=== PATIENT | female | born 1950 | race Caucasian/White ===

== ENCOUNTER → 2016-11-19 | Outpatient (CLI) | payer MEDICARE ==
--- NOTE | 2016-11-19 14:20 | MM ---
Reason for exam: history of breast cancer, conservation therapy. Last mammogram was performed 1 year ago. History: Patient is postmenopausal and has history of breast cancer at age 52. Benign cyst aspiration of the left breast, June 02, 2004. Excisional biopsy of the left breast, June 2004. Radiation therapy of the left breast, 2002. Lumpectomy of the left breast, September 01, 2002. Malignant stereotactic core biopsy of the left breast, August 07, 2002. Core biopsy of the left breast. Taking antineoplastic for 5 years. Physical Findings: Nurse did not find any significant physical abnormalities on exam. MG 3D Diag Mammo W/Cad ALEXANDREA Bilateral CC and MLO view(s) were taken. Prior study comparison: November 18, 2015, bilateral MG 3d diag mammo w/cad ALEXANDREA. September 06, 2014, bilateral MG screening mammo w CAD. May 25, 2013, bilateral digital screening mammo w/CAD. February 19, 2012, CAD bilateral diagnostic mammogram. February 17, 2011, CAD bilateral diagnostic mammogram. There are scattered fibroglandular densities. Post surgical changes with redemonstrated lumpectomy scar and fat necrosis calcifications posterior left breast. No significant new findings when compared with previous films. These results were verbally communicated with the patient and result sheet given to the patient on 11/19/16. ASSESSMENT: Benign, BI-RAD 2 RECOMMENDATION: Follow-up diagnostic mammogram of both breasts in 1 year.
== END | disposition home or self-care (01) ==
LOC: RADMAMWWP 13:38
PROVIDERS: ATTEND Internal Medicine Hematology & Oncology
DX: Z12.31 Encounter for screening mammogram for malignant neoplasm of breast (principal); Z85.3 Personal history of malignant neoplasm of breast
CPT/HCPCS: G0204; G0279

== ENCOUNTER → 2018-02-03 | Outpatient (CLI) | payer MEDICARE ==
--- NOTE | 2018-02-03 16:34 | BD ---
EXAMINATION TYPE: MG DEXA axial skeleton. DATE OF EXAM: 02/03/2018 COMPARISON: 68-year-old female osteopenia 05.25.2013 CLINICAL HISTORY: 68 YR OLD FEMALE.....ICD-10 CODE: M85.8 OSTEOPENIA Height: 62.5 Weight: 229 FRAX RISK QUESTIONS: Alcohol (3 or more units per day): NO Family History (Parent hip fracture): NO Glucocorticoids (More than 3mos): NO (Ex: prednisone, prednisolone, methylprednisolone, dexamethasone, and hydrocortisone). History of Fracture in Adulthood: NO Secondary Osteoporosis: NO 1. Type 1 Diabetes: NO 2. Hyperthyroidism: NO 3. Menopause before 45: NO 4. Malnutrition: NO 5. Chronic liver disease: NO Rheumatoid Arthritis: NO Current Tobacco Use: NO RISK FACTORS HISTORY OF: Hip Fracture BILAT HIP REPLACEMENTS....BUT NO FXS Surgery to BILAT THRS When: 2013,2015 Family History of Osteoporosis: NO Active: YES Diet low in dairy products/other sources of calcium: NO Postmenopausal woman: YES AT AGE 50 Lost more than 2 inches in height since high school: YES Hyperparathyroidism: NO Adrenal Insufficiency: NO MEDICATIONS: Additional Medications: BP MEDS, HX OF RADIATION, MEDS FOR CHOLESTEROL, CALCIUM IN MULTIVITAMIN AND VIT D Additional History: HX OF LT BREAST CANCER, HYPERTENSION EXAM MEASUREMENTS: Bone mineral densitometry was performed using the [employer] System. Bone mineral density as measured about the Lumbar spine is: ----- L1-L4(G/cm2): 1.229 T Score Values are as follows: ----- L1: -1.0 ----- L2: -0.6 ----- L3: 1.4 ----- L4: 1.3 ----- L1-L4: 0.4 Bone mineral density has: Decreased -5.1% since study of: 05.25.2013 BILAT TOTAL HIP REPLACEMENTS.....NO HIP SCANS NO HIPS SCANNED....THEREFORE NO FRAX %S IMPRESSION: Measurements only taken in the lumbar spine due to bilateral hip replacements. Normal (Values between +1 and -1 indicate normal bone mass). Consider repeating this study in 5 year s or sooner if there is some new clinical indication. NOTE: T-SCORE=SD OF THE YOUNG ADULT MEAN.
--- NOTE | 2018-02-04 09:11 | MM ---
Reason for exam: additional evaluation requested from prior study. Last mammogram was performed 1 year and 3 months ago. History: Patient is postmenopausal and has history of breast cancer at age 52. Benign cyst aspiration of the left breast, June 02, 2004. Excisional biopsy of the left breast, June 2004. Radiation therapy of the left breast, 2002. Lumpectomy of the left breast, September 01, 2002. Malignant stereotactic core biopsy of the left breast, August 07, 2002. Core biopsy of the left breast. Taking antineoplastic for 5 years. Physical Findings: Nurse did not find any significant physical abnormalities on exam. MG Diagnostic Mammo w CAD ALEXANDREA Bilateral CC and MLO view(s) were taken. Prior study comparison: November 19, 2016, bilateral MG 3d diag mammo w/cad ALEXANDREA. November 18, 2015, bilateral MG 3d diag mammo w/cad ALEXANDREA. Stable post surgical and post therapy changes left breast with dystrophic calcifications. Tiny nodular asymmetry lateral anterior left breast also unchanged. No significant new findings when compared with previous films. These results were verbally communicated with the patient and result sheet given to the patient on 02/03/18. ASSESSMENT: Benign, BI-RAD 2 RECOMMENDATION: Routine screening mammogram of both breasts in 1 year.
== END | disposition home or self-care (01) ==
LOC: RADMAMWWP 15:12
PROVIDERS: ATTEND Internal Medicine Hematology & Oncology
DX: Z09 Encounter for follow-up examination after completed treatment for conditions other than malignant neoplasm (principal); Z85.3 Personal history of malignant neoplasm of breast; M85.80 Other specified disorders of bone density and structure, unspecified site; Z96.643 Presence of artificial hip joint, bilateral
CPT/HCPCS: 77066; 77080

== ENCOUNTER → 2018-03-09 | Outpatient (CLI) | payer MEDICARE ==
--- NOTE | 2018-03-09 13:49 | XR ---
EXAM TYPE: LUMBAR SPINE X RAY SERIES COMPARISON: NONE HISTORY: Pain TECHNIQUE: 4 views are submitted. FINDINGS: Alignment is anatomic. The pedicles are intact. The transverse processes are intact. There is no s pondylolysis or spondylolisthesis. Curvature the spine with multilevel degenerative disc disease. Fa cet arthropathy and multilevel foraminal encroachment noted. Diffuse osteopenia noted. IMPRESSION: 1. Severe degenerative disc disease at all levels with suspected bilateral foraminal encroachment at all levels.
== END | disposition home or self-care (01) ==
LOC: RADXRYALE 11:52
PROVIDERS: ATTEND Physician Assistant Medical
DX: M51.36 Other intervertebral disc degeneration, lumbar region (principal)
CPT/HCPCS: 72110

== ENCOUNTER → 2019-02-23 | Outpatient (CLI) | payer MEDICARE ==
--- NOTE | 2019-02-24 14:27 | MM ---
Reason for exam: screening (asymptomatic). Last mammogram was performed 1 year and 1 month ago. History: Patient is postmenopausal and has history of breast cancer at age 52. Benign cyst aspiration of the left breast, June 02, 2004. Excisional biopsy of the left breast, June 2004. Radiation therapy of the left breast, 2002. Lumpectomy of the left breast, September 01, 2002. Malignant stereotactic core biopsy of the left breast, August 07, 2002. Core biopsy of the left breast. Taking antineoplastic for 5 years. Physical Findings: A clinical breast exam by your physician is recommended on an annual basis and results should be correlated with mammographic findings. MG 3D Screening Mammo W/Cad Bilateral CC and MLO view(s) were taken. XCCL view(s) were taken of the left breast. Prior study comparison: February 03, 2018, bilateral MG diagnostic mammo w CAD ALEXANDREA. November 19, 2016, bilateral MG 3d diag mammo w/cad ALEXANDREA. There are scattered fibroglandular densities. Asymmetric breast tissue greater in the left breast. Post surgical changes in the left breast. No significant changes when compared with prior studies. ASSESSMENT: Benign, BI-RAD 2 RECOMMENDATION: Routine screening mammogram of both breasts in 1 year.
== END ==
LOC: RADMAMWWP 10:20
PROVIDERS: ATTEND Internal Medicine Hematology & Oncology
DX: Z12.31 Encounter for screening mammogram for malignant neoplasm of breast (principal)
CPT/HCPCS: 77063; 77067

== ENCOUNTER → 2020-06-11 | Outpatient (CLI) | payer MEDICARE ==
--- NOTE | 2020-06-13 11:26 | MM ---
Reason for exam: screening (asymptomatic). Last mammogram was performed 1 year and 4 months ago. History: Patient is postmenopausal and has history of breast cancer at age 52. Benign cyst aspiration of the left breast, June 02, 2004. Excisional biopsy of the left breast, June 2004. Radiation therapy of the left breast, 2002. Lumpectomy of the left breast, September 01, 2002. Malignant stereotactic core biopsy of the left breast, August 07, 2002. Core biopsy of the left breast. Taking antineoplastic for 5 years. Physical Findings: A clinical breast exam by your physician is recommended on an annual basis and results should be correlated with mammographic findings. MG 3D Screening Mammo W/Cad Bilateral CC and MLO view(s) were taken. Prior study comparison: February 23, 2019, bilateral MG 3d screening mammo w/cad. February 03, 2018, bilateral MG diagnostic mammo w CAD ALEXANDREA. There are scattered fibroglandular densities. Post surgical and post therapy change left breast. Fat necrosis calcifications posterior upper outer quadrant. No significant changes when compared with prior studies. ASSESSMENT: Benign, BI-RAD 2 RECOMMENDATION: Routine screening mammogram of both breasts in 1 year.
== END | disposition home or self-care (01) ==
LOC: RADMAMWWP 13:04
PROVIDERS: ATTEND Internal Medicine Hematology & Oncology
DX: Z12.31 Encounter for screening mammogram for malignant neoplasm of breast (principal)
CPT/HCPCS: 77063; 77067

== ENCOUNTER → 2021-03-10 | Outpatient (CLI) | payer MEDICARE ==
--- NOTE | 2021-03-10 16:07 | XR ---
Cervical spine HISTORY: Chronic neck pain 5 views of the cervical spine There is multilevel spondylosis. Loss of disc height is present intervertebral levels especially C4-5 , C5-6 and C6-7, C7-T1. Prevertebral soft tissues are normal. Cervical vertebral bodies show preserve d height. Bone mineralization is reduced. There is minimal retrolisthesis grade 1 C4-5, C5-6. Foramin al encroachment is present on the right at C4-5, C5-6, C6-7 and on the left at T3-4, C4-5, C5-6 and C 6-7. There are facet arthropathy changes. Surgical clips are noted over the upper chest. There are ov erlying artifacts. IMPRESSION: Degenerative disc disease, foraminal encroachment, facet arthropathy.
== END | disposition home or self-care (01) ==
LOC: RADXRYALE 15:15
PROVIDERS: ATTEND Physician Assistant Medical
DX: M50.30 Other cervical disc degeneration, unspecified cervical region (principal); M47.812 Spondylosis without myelopathy or radiculopathy, cervical region; M99.71 Connective tissue and disc stenosis of intervertebral foramina of cervical region
CPT/HCPCS: 72050

== ENCOUNTER 2021-06-02 14:20 | Observation (INO) | payer MEDICARE ==
[2021-06-02] MEDS ORDERED: SODIUM CHLORIDE 0.9% 1,000 ML IV STA (14:31)
[2021-06-02 15:24] LABS: Basophils % (A) 1 %; Eosinophils # (A) 0.1 k/uL (0-0.7); Eosinophils % (A) 3 %; HCT 39.2 % (34.0-46.0); HGB 13.3 gm/dL (11.4-16.0); Lymphocytes # (A) 0.7 k/uL (1.0-4.8); Lymphocytes % (A) 15 %; MCH 32.7 pg (25.0-35.0); MCHC 33.8 g/dL (31.0-37.0); MCV 96.7 fL (80.0-100.0); Mean Platelet Volume 7.4; Monocytes # (A) 0.4 k/uL (0-1.0); Monocytes % (A) 8 %; Neutrophils # (A) 3.3 k/uL (1.3-7.7); Neutrophils % (A) 69 %; Platelet Count 252 k/uL (150-450); RBC 4.06 m/uL (3.80-5.40); RDW 13.1 % (11.5-15.5); WBC 4.8 k/uL (3.8-10.6)
--- NOTE | 2021-06-02 15:27 | ED ---
Dizziness HPI - General Chief Complaint: Syncope Stated Complaint: syncope, covid+ Time Seen by Provider: 06/02/21 14:31 Source: EMS Mode of arrival: EMS Limitations: no limitations, language barrier - History of Present Illness Initial Comments: Patient presents to the [facility] after syncopal episode. She has no chest pain or belly pain or back pain. She has no nausea or vomiting. She has no lightheadedness or dizziness. She has had a cough over the last couple days. She went to a urgent care and they diagnosed with Covid. Then she had an episode of vomiting and syncopal episode. She currently has no problems or complaints. She has no focal weakness. She has no headache, neck pain or stiffness. - Related Data Home Medications Medication Instructions Recorded Confirmed Ascorbic Acid [Vitamin C] 1,000 mg PO DAILY 06/02/21 06/02/21 Cholecalciferol [Vitamin D3 (25 25 mcg PO DAILY 06/02/21 06/02/21 Mcg = 1000 Iu)] Enalapril/Hydrochlorothiazide 1 tab PO DAILY 06/02/21 06/02/21 [Enalapril/Hydrochlorothiazide 10-25 mg Tablet] Fenofibrate [Lofibra] 160 mg PO DAILY 06/02/21 06/02/21 Glucosamine/Chondr Caceres A Sod [Osteo 1 tab PO BID 06/02/21 06/02/21 Bi-Flex Caplet] Metoprolol Succinate (ER) [Toprol 50 mg PO DAILY 06/02/21 06/02/21 Xl] Multivitamins, Thera [Multivitamin 1 tab PO DAILY 06/02/21 06/02/21 (formulary)] [place]-3 Fatty Acids [[place]-3] 1,000 mg PO DAILY 06/02/21 06/02/21 Vit C/E/Zn/Coppr/Lutein/Zeaxan 1 cap PO BID 06/02/21 06/02/21 [Preservision Areds 2 Softgel] Allergies Allergy/AdvReac Type Severity Reaction Status Date / Time Sulfa (Sulfonamide Allergy Rash/Hives Verified 06/02/21 15:49 Antibiotics) Review of Systems ROS Statement: Those systems with pertinent positive or pertinent negative responses have been documented in the HPI. ROS Other: All systems not noted in ROS Statement are negative. Past Medical History Past Medical History: Cancer, Hyperlipidemia, Hypertension Additional Past Medical History / Comment(s): breast cancer History of Any Multi-Drug Resistant Organisms: None Reported Past Surgical History: Joint Replacement, Orthopedic Surgery, Tonsillectomy, Tubal Ligation Additional Past Surgical History / Comment(s): lumpectomy on left breast, cataract x2 Past Psychological History: No Psychological Hx Reported Smoking Status: Never smoker Past Alcohol Use History: Occasional Past Drug Use History: None Reported General Exam Limitations: no limitations, language barrier General appearance: alert, in no apparent distress Head exam: Present: atraumatic, normocephalic, normal inspection Eye exam: Present: normal appearance, PERRL, EOMI. Absent: scleral icterus, conjunctival injection, periorbital swelling ENT exam: Present: normal exam, mucous membranes moist Neck exam: Present: normal inspection. Absent: tenderness, meningismus, lymphadenopathy Respiratory exam: Present: normal lung sounds bilaterally. Absent: respiratory distress, wheezes, rales, rhonchi, stridor Cardiovascular Exam: Present: regular rate, normal rhythm, normal heart sounds. Absent: systolic murmur, diastolic murmur, rubs, gallop, clicks GI/Abdominal exam: Present: soft, normal bowel sounds. Absent: distended, tenderness, guarding, rebound, rigid Extremities exam: Present: normal inspection, full ROM, normal capillary refill. Absent: tenderness, pedal edema, joint swelling, calf tenderness Back exam: Present: normal inspection Neurological exam: Present: alert, oriented X3, CN II-XII intact Psychiatric exam: Present: normal affect, normal mood Skin exam: Present: warm, dry, intact, normal color. Absent: rash Course Vital Signs 06/02/21 06/02/21 06/02/21 14:22 15:56 16:21 Temperature 97.6 F Pulse Rate 78 68 Pulse Rate [ 71 Sitting Auto Body Mechanic Apprentice] Pulse Rate [ 77 Standing Auto Body Mechanic Apprentice ] Pulse Rate [ 65 Supine Auto Body Mechanic Apprentice] Respiratory 18 18 Rate Blood Pressure 110/66 113/69 Blood Pressure 126/71 [Right Arm Sitting] Blood Pressure 125/67 [Right Arm Standing] Blood Pressure 116/69 [Right Arm Supine] O2 Sat by Pulse 99 99 Oximetry EKG Findings - EKG Comments: EKG Findings:: Twelve-lead EKG shows ventricular rate 74 bpm, normal W[place] interval and QRS complexes, no ST elevation or depression, interpreted by me as normal sinus rhythm. Medical Decision Making - Medical Decision Making Patient continues to not feel well. She will be admitted to the hospital. - Lab Data Result diagrams: 06/02/21 14:56 06/02/21 14:56 Lab Results 06/02/21 06/02/21 06/02/21 Range/Units 14:56 14:56 14:56 WBC 4.8 (3.8-10.6) k/uL RBC 4.06 (3.80-5.40) m/uL Hgb 13.3 (11.4-16.0) gm/dL Hct 39.2 (34.0-46.0) % MCV 96.7 (80.0-100.0) fL MCH 32.7 (25.0-35.0) pg MCHC 33.8 (31.0-37.0) g/dL RDW 13.1 (11.5-15.5) % Plt Count 252 (150-450) k/uL MPV 7.4 Neutrophils % 69 % Lymphocytes % 15 % Monocytes % 8 % Eosinophils % 3 % Basophils % 1 % Neutrophils # 3.3 (1.3-7.7) k/uL Lymphocytes # 0.7 L (1.0-4.8) k/uL Monocytes # 0.4 (0-1.0) k/uL Eosinophils # 0.1 (0-0.7) k/uL Basophils # 0.0 (0-0.2) k/uL PT 11.9 (9.0-12.0) sec INR 1.1 (<1.2) APTT 23.5 (22.0-30.0) sec Sodium 135 L (137-145) mmol/L Potassium 3.7 (3.5-5.1) mmol/L Chloride 99 (98-107) mmol/L Carbon Dioxide 28 (22-30) mmol/L Anion Gap 8 mmol/L BUN 21 H (7-17) mg/dL Creatinine 0.93 (0.52-1.04) mg/dL Est GFR (CKD-EPI)AfAm 71 (>60 ml/min/1.73 sqM) Est GFR (CKD-EPI)NonAf 62 (>60 ml/min/1.73 sqM) Glucose 121 H (74-99) mg/dL Calcium 9.1 (8.4-10.2) mg/dL Magnesium 1.7 (1.6-2.3) mg/dL Total Bilirubin 0.2 (0.2-1.3) mg/dL AST 73 H (14-36) U/L ALT 56 H (4-34) U/L Alkaline Phosphatase 47 (38-126) U/L Troponin I (0.000-0.034) ng/mL Total Protein 6.5 (6.3-8.2) g/dL Albumin 3.7 (3.5-5.0) g/dL Urine Color Urine Appearance (Clear) Urine pH (5.0-8.0) Ur Specific [place] (1.001-1.035) Urine Protein (Negative) Urine Glucose (UA) (Negative) Urine Ketones (Negative) Urine Blood (Negative) Urine Nitrite (Negative) Urine Bilirubin (Negative) Urine Urobilinogen (<2.0) mg/dL Ur Leukocyte Esterase (Negative) Urine RBC (0-5) /hpf Urine WBC (0-5) /hpf Ur Squamous Epith Cells (0-4) /hpf Hyaline Casts (0-2) /lpf Urine Mucus (None) /hpf Coronavirus (PCR) (Not Detectd) 06/02/21 06/02/21 06/02/21 Range/Units 14:56 14:56 16:35 WBC (3.8-10.6) k/uL RBC (3.80-5.40) m/uL Hgb (11.4-16.0) gm/dL Hct (34.0-46.0) % MCV (80.0-100.0) fL MCH (25.0-35.0) pg MCHC (31.0-37.0) g/dL RDW (11.5-15.5) % Plt Count (150-450) k/uL MPV Neutrophils % % Lymphocytes % % Monocytes % % Eosinophils % % Basophils % % Neutrophils # (1.3-7.7) k/uL Lymphocytes # (1.0-4.8) k/uL Monocytes # (0-1.0) k/uL Eosinophils # (0-0.7) k/uL Basophils # (0-0.2) k/uL PT (9.0-12.0) sec INR (<1.2) APTT (22.0-30.0) sec Sodium (137-145) mmol/L Potassium (3.5-5.1) mmol/L Chloride (98-107) mmol/L Carbon Dioxide (22-30) mmol/L Anion Gap mmol/L BUN (7-17) mg/dL Creatinine (0.52-1.04) mg/dL Est GFR (CKD-EPI)AfAm (>60 ml/min/1.73 sqM) Est GFR (CKD-EPI)NonAf (>60 ml/min/1.73 sqM) Glucose (74-99) mg/dL Calcium (8.4-10.2) mg/dL Magnesium (1.6-2.3) mg/dL Total Bilirubin (0.2-1.3) mg/dL AST (14-36) U/L ALT (4-34) U/L Alkaline Phosphatase (38-126) U/L Troponin I <0.012 (0.000-0.034) ng/mL Total Protein (6.3-8.2) g/dL Albumin (3.5-5.0) g/dL Urine Color Yellow Urine Appearance Cloudy H (Clear) Urine pH 6.0 (5.0-8.0) Ur Specific [place] 1.016 (1.001-1.035) Urine Protein Trace H (Negative) Urine Glucose (UA) Negative (Negative) Urine Ketones Negative (Negative) Urine Blood Negative (Negative) Urine Nitrite Negative (Negative) Urine Bilirubin Negative (Negative) Urine Urobilinogen <2.0 (<2.0) mg/dL Ur Leukocyte Esterase Negative (Negative) Urine RBC <1 (0-5) /hpf Urine WBC 4 (0-5) /hpf Ur Squamous Epith Cells 2 (0-4) /hpf Hyaline Casts 35 H (0-2) /lpf Urine Mucus Few H (None) /hpf Coronavirus (PCR) Detected A (Not Detectd) Disposition Clinical Impression: Syncope, COVID-19 Disposition: ADMITTED IP TO THIS HOSP Condition: Fair Is patient prescribed a controlled substance at d/c from ED?: No Referrals: Leland Martinez DO [Primary Care Provider] - 1-2 days
[2021-06-02 15:32] LABS: INR 1.1 (<1.2); Partial Thromboplastin Time 23.5 sec (22.0-30.0); Prothrombin Time 11.9 sec (9.0-12.0)
[2021-06-02 15:35] LABS: Albumin 3.7 g/dL (3.5-5.0); Calcium 9.1 mg/dL (8.4-10.2); Magnesium 1.7 mg/dL (1.6-2.3); Potassium 3.7 mmol/L (3.5-5.1); Total Bilirubin 0.2 mg/dL (0.2-1.3); Total Protein 6.5 g/dL (6.3-8.2)
--- NOTE | 2021-06-02 15:36 | XR ---
EXAMINATION TYPE: XR chest 2V DATE OF EXAM: 06/02/2021 COMPARISON: 11/18/2015 HISTORY: 71-year-old female with syncope TECHNIQUE: PA and lateral views FINDINGS: The heart is upper limits of normal in size. Aorta and pulmonary vasculature within normal limits. In terstitial prominence is chronic appearance. No consolidation or pleural effusion. Surgical clips in the left axilla. Calcified AP window lymph nodes from prior granulomatous disease. IMPRESSION: Chronic appearing changes. No acute process seen.
--- NOTE | 2021-06-02 15:59 | CT ---
EXAMINATION TYPE: CT brain wo con DATE OF EXAM: 06/02/2021 COMPARISON: None INDICATION: Syncope. DLP: 1162.4 mGycm, Automated exposure control for dose reduction was used. CONTRAST: None CT of the brain is performed utilizing 3 mm thick sections through the posterior fossa and 3 mm thick sections through the remaining calvarium. Study is performed within 24 hours of arrival to the hosp [facility]. No abnormal hyperdensity is present to suggest an acute intracranial hemorrhage. No mass lesion is evident. No acute infarcts are evident. Ventricles and sulci are appropriate for the patient age. Paranasal sinuses and mastoid air cells within the [id number] are clear. IMPRESSIONS: 1. No acute intracranial process.
[2021-06-02 16:43] LABS: Appearance,Urine Cloudy (Clear); Bilirubin,Urine Negative (Negative); Blood,Urine Negative (Negative); Color,Urine Yellow; Glucose,Urine (UA) Negative (Negative); Hyaline Casts,Urine 35 /lpf (0-2); Ketones,Urine Negative (Negative); Leukocyte Esterase,Urine Negative (Negative); Mucus,Urine Few /hpf; Nitrite,Urine Negative (Negative); Protein,Urine Trace (Negative); RBC,Urine <1 /hpf (0-5); Specific Gravity,Urine 1.016 (1.001-1.035); Squamous Epithelial Cell,Urine 2 /hpf (0-4); Urobilinogen,Urine <2.0 mg/dL (<2.0); WBC,Urine 4 /hpf (0-5)
[2021-06-02] MEDS ORDERED: ONDANSETRON 4 MG/2 ML VIAL IVP PRN (17:24)
[2021-06-02] MEDS ORDERED: TEMAZEPAM 15 MG CAP PO PRN (17:24)
[2021-06-02] MEDS ORDERED: NALOXONE 0.4 MG/ML 1 ML VIAL IV PRN (17:24)
[2021-06-03] MEDS: Acetaminophen-Codeine 300-30mg TAB PO PRN ×3 (00:42→14:40)
[2021-06-03 07:56] VITALS: RESP 17
[2021-06-03] MEDS ORDERED: hydroCHLOROthiazide 25 MG TAB PO SCH (09:00)
[2021-06-03] MEDS ORDERED: CHOLECALCIFEROL 25 MCG (1000 IU) TABLET PO SCH (09:00)
[2021-06-03] MEDS ORDERED: METOPROLOL SUCCINATE (ER) 50 MG TAB.ER.24H PO SCH (09:00)
[2021-06-03] MEDS ORDERED: FENOFIBRATE 160 MG TAB PO SCH (09:00)
[2021-06-03] MEDS ORDERED: lisinopriL 20 MG TAB PO SCH (09:00)
--- NOTE | 2021-06-03 10:09 | P.CRDCN ---
History of Present Illness Consult date: 06/03/21 History of present illness: HISTORY OF PRESENT ILLNESS: This is a 71-year-old female with a past medical history significant for hypertension and hyperlipidemia. 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 We have been asked to see the patient in consultation for syncope. Patient examined at the bedside. Patient states she started feeling unwell on Wednesday. She decided yesterday to go to Urgent Care yesterday where she was diagnosed with Covid. She states she was sitting in the exam room with her and she passed out. She denies feeling dizzy or lightheaded prior to this occurring. She does report feeling a little bit lightheaded on the way to the urgent care. She denied having chest pain or shortness of breath. She states that she only believes she was out for a few seconds. When she woke up she had some emesis on her shirt. She denies biting her tongue. Denies losing bowel or bladder control. She states they checked her oxygenation at urgent care afterwards and it was found to be in the 80s and they applied oxygen. She is currently on room air with oxygen saturations greater than 92%. Patient does report a history of passing out a few times in the past. She reports every time she has passed out it seemed to correlate when she was throwing up. EKG reveals sinus mechanism with no signs of acute ischemia Chest xray chronic appearing changes. No acute process seen. Laboratory data: WBC 4.8. Hemoglobin 13.3. Platelet count 252. Sodium 135. Potassium 3.7. BUN 21. Creatinine 0.93. Magnesium 1.7. Troponin negative 3. Current home cardiac medications include metoprolol succinate 50 mg daily, feno fibrate 160mg daily, and enalapril/hydrochlorothiazide 1025 milligrams daily REVIEW OF SYSTEMS: At the time of my exam: CONSTITUTIONAL: Denies fever or chills. HEENT: Denies blurred vision, vision changes, or eye pain. Denies hemoptysis CARDIOVASCULAR: Denies chest pain. Denies orthopnea. Denies PND. Denies palpitations RESPIRATORY: Denies shortness of breath. GASTROINTESTINAL: Denies abdominal pain. Denies nausea or vomiting. HEMATOLOGIC: Denies bleeding disorders. GENITOURINARY: Denies any blood in urine. SKIN: Denies pruitis. Denies rash. PHYSICAL EXAM: VITAL SIGNS: Reviewed. GENERAL: Well-developed in no acute distress. HEENT: Head is normocephalic. Pupils are equal, round. Sclerae anicteric. Mucous membranes of the mouth are moist. Neck supple. No JVD or thyromegaly LUNGS: Respirations even and unlabored. Lungs essentially clear to auscultation bilaterally. HEART: Regular rate and rhythm. S1 and S2 heard. ABDOMEN: Soft. Nondistended. Nontender. EXTREMITIES: Normal range of motion. No clubbing or cyanosis. Peripheral pulses intact. No lower extremity edema NEUROLOGIC: Awake and alert. Oriented x 3. ASSESSMENT: Acute Covid 19 Syncope Hypertension Hyperlipidemia PLAN: Obtain 2D echo to assess cardiac structure and function Begin telemetry monitoring Orthostatics checked and unremarkable Obtain D-Dimer. May be elevated secondary to acute covid, however would like to rule out PE etiology Resume home cardiac medications Patient may be discharged home this afternoon if she remains stable and follow up on an outpatient basis Nurse practitioner note has been reviewed by physician. Signing provider agrees with the documented findings, assessment, and plan of care. Past Medical History Past Medical History: Cancer, Hyperlipidemia, Hypertension Additional Past Medical History / Comment(s): breast cancer History of Any Multi-Drug Resistant Organisms: None Reported Past Surgical History: Joint Replacement, Orthopedic Surgery, Tonsillectomy, Tubal Ligation Additional Past Surgical History / Comment(s): lumpectomy on left breast, cataract x2 Past Anesthesia/Blood Transfusion Reactions: No Reported Reaction Past Psychological History: No Psychological Hx Reported Smoking Status: Never smoker Past Alcohol Use History: Occasional Past Drug Use History: None Reported Medications and Allergies Home Medications Medication Instructions Recorded Confirmed Type Ascorbic Acid [Vitamin C] 1,000 mg PO DAILY 06/02/21 06/02/21 History Cholecalciferol [Vitamin D3 (25 25 mcg PO DAILY 06/02/21 06/02/21 History Mcg = 1000 Iu)] Enalapril/Hydrochlorothiazide 1 tab PO DAILY 06/02/21 06/02/21 History [Enalapril/Hydrochlorothiazide 10-25 mg Tablet] Fenofibrate [Lofibra] 160 mg PO DAILY 06/02/21 06/02/21 History Glucosamine/Chondr Caceres A Sod [Osteo 1 tab PO BID 06/02/21 06/02/21 History Bi-Flex Caplet] Metoprolol Succinate (ER) [Toprol 50 mg PO DAILY 06/02/21 06/02/21 History Xl] Multivitamins, Thera [Multivitamin 1 tab PO DAILY 06/02/21 06/02/21 History (formulary)] [place]-3 Fatty Acids [[place]-3] 1,000 mg PO DAILY 06/02/21 06/02/21 History Vit C/E/Zn/Coppr/Lutein/Zeaxan 1 cap PO BID 06/02/21 06/02/21 History [Preservision Areds 2 Softgel] Allergies Allergy/AdvReac Type Severity Reaction Status Date / Time Sulfa (Sulfonamide Allergy Rash/Hives Verified 06/02/21 15:49 Antibiotics) Physical Exam Vitals: Vital Signs Temp Pulse Pulse Pulse Pulse Pulse Resp 06/03/21 07:00 98.3 F 74 17 06/03/21 02:10 98.2 F 75 16 06/02/21 23:50 96.6 F L 63 16 06/02/21 23:00 62 18 06/02/21 20:58 98.9 F 63 18 06/02/21 18:59 98.1 F 66 18 06/02/21 18:06 96.6 F L 68 16 06/02/21 16:21 71 77 65 06/02/21 15:56 68 18 06/02/21 14:22 97.6 F 78 18 BP BP BP BP BP Pulse Ox 06/03/21 07:00 121/78 93 L 06/03/21 02:10 110/65 97 06/02/21 23:50 113/68 96 06/02/21 23:00 96 06/02/21 20:58 109/75 98 06/02/21 18:59 103/67 95 06/02/21 18:06 113/68 96 06/02/21 16:21 126/71 125/67 116/69 06/02/21 15:56 113/69 99 06/02/21 14:22 110/66 99 Intake and Output 06/02/21 06/03/21 06/03/21 22:59 06:59 14:59 Intake Total 1979 Output Total Balance 1978 Intake: IV 20 Invasive Line 1 20 Intake, IV Titration 1000 Amount Sodium Chloride 0.9% 1, 1000 000 ml @ 999 mls/hr IV . Q1H1M STA Rx#:[id number] Oral 960 Output: Urine 1 Other: # Voids 3 Weight 111.13 kg Results 06/02/21 14:56 06/02/21 14:56 Cardiac Enzymes 06/02/21 06/02/21 06/02/21 Range/Units 14:56 14:56 18:56 AST 73 H (14-36) U/L Troponin I <0.012 <0.012 (0.000-0.034) ng/mL 06/02/21 Range/Units 21:56 AST (14-36) U/L Troponin I <0.012 (0.000-0.034) ng/mL Coagulation 06/02/21 Range/Units 14:56 PT 11.9 (9.0-12.0) sec APTT 23.5 (22.0-30.0) sec CBC 06/02/21 Range/Units 14:56 WBC 4.8 (3.8-10.6) k/uL RBC 4.06 (3.80-5.40) m/uL Hgb 13.3 (11.4-16.0) gm/dL Hct 39.2 (34.0-46.0) % Plt Count 252 (150-450) k/uL Comprehensive Metabolic Panel 06/02/21 Range/Units 14:56 Sodium 135 L (137-145) mmol/L Potassium 3.7 (3.5-5.1) mmol/L Chloride 99 (98-107) mmol/L Carbon Dioxide 28 (22-30) mmol/L BUN 21 H (7-17) mg/dL Creatinine 0.93 (0.52-1.04) mg/dL Glucose 121 H (74-99) mg/dL Calcium 9.1 (8.4-10.2) mg/dL AST 73 H (14-36) U/L ALT 56 H (4-34) U/L Alkaline Phosphatase 47 (38-126) U/L Total Protein 6.5 (6.3-8.2) g/dL Albumin 3.7 (3.5-5.0) g/dL Current Medications Generic Name Dose Route Start Last Admin Trade Name Freq PRN Reason Stop Dose Admin Acetaminophen/Codeine Phosphate 1 each 06/02/21 17:24 06/03/21 08:15 Acetaminophen-Codeine 300-30mg Tab PO 1 each Q4HR PRN Administration Moderate Pain Cholecalciferol 25 mcg 06/03/21 09:00 06/03/21 08:15 Cholecalciferol 25 Mcg (1000 Iu) Tablet PO 25 mcg DAILY LEONARDO Administration Fenofibrate 160 mg 06/03/21 09:00 06/03/21 08:15 Fenofibrate 160 Mg Tab PO 160 mg DAILY LEONARDO Administration Hydrochlorothiazide 25 mg 06/03/21 09:00 06/03/21 08:16 Hydrochlorothiazide 25 Mg Tab PO 25 mg DAILY LEONARDO Administration Lisinopril 20 mg 06/03/21 09:00 06/03/21 08:16 Lisinopril 20 Mg Tab PO 20 mg DAILY LEONARDO Administration Metoprolol Succinate 50 mg 06/03/21 09:00 06/03/21 08:15 Metoprolol Succinate (Er) 50 Mg Tab.Er.24h PO 50 mg DAILY LEONARDO Administration Naloxone HCl 0.2 mg 06/02/21 17:24 Naloxone 0.4 Mg/Ml 1 Ml Vial IV Q2M PRN Opioid Reversal Ondansetron HCl 4 mg 06/02/21 17:24 Ondansetron 4 Mg/2 Ml Vial IVP Q8HR PRN Nausea And Vomiting Temazepam 15 mg 06/02/21 17:24 Temazepam 15 Mg Cap PO HS PRN Insomnia Intake and Output 06/02/21 06/03/21 06/03/21 22:59 06:59 14:59 Intake Total 1979 Output Total Balance 1978 Intake: IV 20 Invasive Line 1 20 Intake, IV Titration 1000 Amount Sodium Chloride 0.9% 1, 1000 000 ml @ 999 mls/hr IV . Q1H1M STA Rx#:[id number] Oral 960 Output: Urine 1 Other: # Voids 3 Weight 111.13 kg 06/02/21 14:56 06/02/21 14:56
--- NOTE | 2021-06-03 12:48 | ECHOF ---
Referral Reason:LV function, syncope, + covid MEASUREMENTS -------- HEIGHT: 162.6 cm WEIGHT: 111.1 kg BP: 121/78 RVIDd: 3.4 cm (< 3.3) IVSd: 1.1 cm (0.6 - 1.1) LVIDd: 4.3 cm (3.9 - 5.3) LVPWd: 1.1 cm (0.6 - 1.1) IVSs: 1.7 cm LVIDs: 2.9 cm LVPWs: 1.5 cm LA Diam: 3.4 cm (2.7 - 3.8) LAESV Index (A-L): 12.27 ml/m Ao Diam: 2.9 cm (2.0 - 3.7) AV Cusp: 2.2 cm (1.5 - 2.6) MV EXCURSION: 13.666 mm (> 18.000) MV EF SLOPE: 61 mm/s (70 - 150) EPSS: 0.5 cm MV E Oneal: 0.77 m/s MV DecT: 284 ms MV A Oneal: 1.00 m/s MV E/A Ratio: 0.77 FINDINGS -------- Sinus rhythm. This was a technically adequate study. The left ventricular size is normal. There is borderline concentric left ventricular hypertrophy. Overall left ventricular systolic function is normal with, an EF between 55 - 60 %. The right ventricle is mildly enlarged. Normal LA size by volume 22+/-6 ml/m2. The right atrial size is normal. Interatrial and interventricular septum intact. The aortic valve is trileaflet, and appears structurally normal. No aortic stenosis or regurgitation. Trace amount of aortic regurgitation. The mitral valve is normal. There is trace to mild mitral regurgitation. The tricuspid valve appears structurally normal. Trace tricuspid regurgitation present. Trace/mild (physiologic) pulmonic regurgitation. The aortic root size is normal. Normal inferior vena cava with normal inspiratory collapse consistent with estimated right atrial pre ssure of 5 mmHg. There is no pericardial effusion. CONCLUSIONS -------- 1. There is borderline concentric left ventricular hypertrophy. 2. Overall left ventricular systolic function is normal with, an EF between 55 - 60 %. 3. The right ventricle is mildly enlarged. 4. Trace amount of aortic regurgitation. 5. There is trace to mild mitral regurgitation. 6. Trace/mild (physiologic) pulmonic regurgitation. 7. There is no pericardial effusion. TOY MAKER: Mali Krishnamurthy RDCS
[2021-06-03 14:49] VITALS: BP 114/75; PULSE 72; TEMP 98.4
[2021-06-03] MEDS ORDERED: CASIRIVIMAB (REGN10933) (EUA) 600 MG, IMDEVIMAB (REGN10987) (EUA) 600 MG in SODIUM CHLO... IVPB ONE (15:00)
[2021-06-03] MEDS ORDERED: SODIUM CHLORIDE 0.9% 50 ML IVPB ONE (15:30)
--- NOTE | 2021-06-03 16:16 | P.HPIM ---
History of Present Illness H&P Date: 06/03/21 This is a pleasant 71-year-old female who was recently admitted after a syncopal episode stating she was waiting for Covid testing at an urgent care and had an episode of vomiting followed by a syncopal episode and EMS was called and patient was brought here for further evaluation. She was found to be positive for Covid 19 along with her who is also positive. Patient has not received the Covid vaccines and refusing at this time. Patient denies any chest pain, shortness of breath, or palpitations. Patient has been having symptoms of cough that started on Wednesday and gradually has been progressing which brought her to the urgent care along with a headache that was not resolved with [id number] medications. Patient currently denies any nausea or vomiting and is tolerating diet and cardiology evaluated the patient recommending 2-D echo which showed overall LV systolic function is normal with an EF of 55-60% with a trace to mild mitral regurgitation present. Patient also had a chest x- ray in the ER showing interstitial prominence which is chronic in appearance with no consolidation or pleural effusion and no suggestion of pneumonia noted. Patient is on room air and denies any shortness of breath or difficulty in breathing. Patient does have cough and has been using over the counter medication with no relief. Patient underwent CT of the brain which showed no ac agdaagux intercranial process evident. Review of Systems Constitutional: Reports fatigue, Reports lethargy, Reports poor appetite Ears, nose, mouth and throat: Denies headache, Denies sore throat Cardiovascular: Reports syncope Respiratory: Reports cough Gastrointestinal: Reports vomiting Genitourinary: Denies dysuria, Denies hematuria Musculoskeletal: Reports low back pain, Reports myalgias Integumentary: Denies pruritus, Denies rash Neurological: Reports syncope Psychiatric: Denies anxiety, Denies depression Endocrine: Denies fatigue, Denies weight change Past Medical History Past Medical History: Cancer, Hyperlipidemia, Hypertension Additional Past Medical History / Comment(s): breast cancer History of Any Multi-Drug Resistant Organisms: None Reported Past Surgical History: Joint Replacement, Orthopedic Surgery, Tonsillectomy, Tubal Ligation Additional Past Surgical History / Comment(s): lumpectomy on left breast, cataract x2 Past Anesthesia/Blood Transfusion Reactions: No Reported Reaction Past Psychological History: No Psychological Hx Reported Smoking Status: Never smoker Past Alcohol Use History: Occasional Past Drug Use History: None Reported Medications and Allergies Home Medications Medication Instructions Recorded Confirmed Type Ascorbic Acid [Vitamin C] 1,000 mg PO DAILY 06/02/21 06/02/21 History Cholecalciferol [Vitamin D3 (25 25 mcg PO DAILY 06/02/21 06/02/21 History Mcg = 1000 Iu)] Fenofibrate [Lofibra] 160 mg PO DAILY 06/02/21 06/02/21 History Glucosamine/Chondr Caceres A Sod [Osteo 1 tab PO BID 06/02/21 06/02/21 History Bi-Flex Caplet] Metoprolol Succinate (ER) [Toprol 50 mg PO DAILY 06/02/21 06/02/21 History XL] Multivitamins, Thera [Multivitamin 1 tab PO DAILY 06/02/21 06/02/21 History (formulary)] [place]-3 Fatty Acids [[place]-3] 1,000 mg PO DAILY 06/02/21 06/02/21 History Vit C/E/Zn/Coppr/Lutein/Zeaxan 1 cap PO BID 06/02/21 06/02/21 History [Preservision Areds 2 Softgel] Acetaminophen-Codeine 300-30mg 1 each PO Q4HR PRN #12 tab 06/03/21 Rx [Tylenol w/codeine #3] Enalapril [Vasotec] 10 mg PO DAILY #30 tablet 06/03/21 Rx Allergies Allergy/AdvReac Type Severity Reaction Status Date / Time Sulfa (Sulfonamide Allergy Rash/Hives Verified 06/02/21 15:49 Antibiotics) Physical Exam Vitals: Vital Signs Temp Pulse Pulse Pulse Pulse Pulse Resp 06/03/21 07:00 98.3 F 74 17 06/03/21 02:10 98.2 F 75 16 06/02/21 23:50 96.6 F L 63 16 06/02/21 23:00 62 18 06/02/21 20:58 98.9 F 63 18 06/02/21 18:59 98.1 F 66 18 06/02/21 18:06 96.6 F L 68 16 06/02/21 16:21 71 77 65 06/02/21 15:56 68 18 06/02/21 14:22 97.6 F 78 18 BP BP BP BP BP Pulse Ox 06/03/21 07:00 121/78 93 L 06/03/21 02:10 110/65 97 06/02/21 23:50 113/68 96 06/02/21 23:00 96 06/02/21 20:58 109/75 98 06/02/21 18:59 103/67 95 06/02/21 18:06 113/68 96 06/02/21 16:21 126/71 125/67 116/69 06/02/21 15:56 113/69 99 06/02/21 14:22 110/66 99 Intake and Output 06/02/21 06/03/21 06/03/21 22:59 06:59 14:59 Intake Total 1980 10 Output Total 1 Balance 1978 10 Intake: IV 20 10 Invasive Line 1 20 10 Intake, IV Titration 1000 Amount Sodium Chloride 0.9% 1, 1000 000 ml @ 999 mls/hr IV . Q1H1M STA Rx#:[id number] Oral 960 Output: Urine 1 Other: # Voids 3 Weight 111.13 kg Gen: This is a 71-year-old female awake, alert and oriented 3, well-developed, well-nourished, obese. HEENT: Head is atraumatic, normocephalic. Pupils equal, round. Sclerae is anicteric. NECK: Supple. No JVD. No lymphadenopathy. No thyromegaly. LUNGS: Diminished breath sounds bilaterally with no wheezing or rhonchi noted. No intercostal retractions. HEART: S1, S2 are muffled ABDOMEN: Soft. Bowel sounds are present. No masses. No tenderness. EXTREMITIES: No pedal edema. No calf tenderness. NEUROLOGICAL: Patient is awake, alert and oriented x3. Cranial nerves 2 through 12 are grossly intact. Results CBC & Chem 7: 06/02/21 14:56 06/02/21 14:56 Labs: Abnormal Lab Results - Last 24 Hours (Table) 06/02/21 06/02/21 06/02/21 Range/Units 14:56 14:56 14:56 Lymphocytes # 0.7 L (1.0-4.8) k/uL D-Dimer (<0.60) mg/L FEU Sodium 135 L (137-145) mmol/L BUN 21 H (7-17) mg/dL Glucose 121 H (74-99) mg/dL AST 73 H (14-36) U/L ALT 56 H (4-34) U/L Urine Appearance (Clear) Urine Protein (Negative) Hyaline Casts (0-2) /lpf Urine Mucus (None) /hpf Coronavirus (PCR) Detected A (Not Detectd) 06/02/21 06/03/21 Range/Units 16:35 09:15 Lymphocytes # (1.0-4.8) k/uL D-Dimer 0.64 H (<0.60) mg/L FEU Sodium (137-145) mmol/L BUN (7-17) mg/dL Glucose (74-99) mg/dL AST (14-36) U/L ALT (4-34) U/L Urine Appearance Cloudy H (Clear) Urine Protein Trace H (Negative) Hyaline Casts 35 H (0-2) /lpf Urine Mucus Few H (None) /hpf Coronavirus (PCR) (Not Detectd) Thrombosis Risk Factor Assmnt - Choose All That Apply Any of the Below Risk Factors Present?: No Assessment and Plan Assessment: COVID-19 infection, diagnosed at urgent care prior to arrival Positive d-dimer secondary to above Elevated ALT, AST secondary to assessment #1 Possible syncopal episode status post an episode of vomiting Acute coronary syndrome ruled out with troponins negative History of breast cancer Hyperlipidemia Hypertension Plan: Patient was having symptoms of worsening cough and generalized weakness and fatigue and not feeling well and was at an urgent care and was recently diagnosed with COVID-19 infection along with her spouse and had an episode of syncope status post vomiting and was brought here by EMS for further evaluation. Patient is on enalapril/hydrochlorothiazide and will hold hydrochlorothiazide and continue with lisinopril for blood pressure control. Patient currently on room air and not requiring any oxygen and oxygen saturations in the 95-97 percentile not requiring any oxygen therapy. Patient was seen and evaluated by cardiology recommending 2-D echo was within normal limits and patient will follow-up outpatient with cardiology. Will continue to monitor closely with possible discharge today. Patient is opting to receive monoclonal antibody prior to discharge. Time with Patient: Greater than 30
[2021-06-04] MEDS ORDERED: lisinopriL 10 MG TAB PO SCH (09:00)
--- NOTE | 2021-06-05 09:07 | P.DS ---
Providers Date of admission: 06/02/21 17:24 Expected date of discharge: 06/03/21 Attending physician: Andre Branham MD Primary care physician: Leland Martinez Hospital Course: Final Diagnosis COVID-19 infection, diagnosed at urgent care prior to arrival Status post monoclonal antibody infusion for Covid 19 (Casirivimab) Positive d-dimer secondary to above Elevated ALT, AST secondary to assessment #1 Possible syncopal episode status post an episode of vomiting Acute coronary syndrome ruled out with troponins negative History of breast cancer Hyperlipidemia Hypertension Full code Discharge disposition Patient is being discharged in a stable condition with guarded prognosis to home. Patient will follow-up with Dr. Oconnor in the outpatient setting upon discharge. Patient will also follow up with neurology Dr. Sosa. Patient instructed to continue to quarantine from time of symptom onset which was Wednesday prior to admission for an additional 14 days along with her spouse who is also Covid positive. Patient to continue on vitamin and zinc supplements on discharge. Total time taken is greater than 35 minutes. Hospital course This is a pleasant 71-year-old female who was recently admitted after a syncopal episode stating she was waiting for Covid testing at an urgent care and had an episode of vomiting followed by a syncopal episode and EMS was called and patient was brought here for further evaluation. She was found to be positive for Covid 19 along with her who is also positive. Patient has not received the Covid vaccines and refusing at this time. Patient denies any chest pain, shortness of breath, or palpitations. Patient has been having symptoms of cough that started on Wednesday and gradually has been progressing which brought her to the urgent care along with a headache that was not resolved with [id number] medications. Patient currently denies any nausea or vomiting and is tolerating diet and cardiology evaluated the patient recommending 2-D echo which showed overall LV systolic function is normal with an EF of 55-60% with a trace to mild mitral regurgitation present. Patient also had a chest x- ray in the ER showing interstitial prominence which is chronic in appearance with no consolidation or pleural effusion and no suggestion of pneumonia noted. Patient is on room air and denies any shortness of breath or difficulty in breathing. Patient does have cough and has been using over the counter medication with no relief. Patient underwent CT of the brain which showed no acute intercranial process evident. 06/03/2021 Patient is seen in follow-up with no acute overnight issues noted. Patient denies any further episodes of nausea or vomiting or syncopal episodes and underwent 2-D echo showing LV systolic function is normal with an EF of 55-60% with a trace amount of aortic regurgitation and a trace to mild mitral regurgitation present. She will follow-up with Dr. Sosa outpatient in the outpatient setting. Patient is status post monoclonal antibody infusion prior to discharge for Covid 19 with no side effects noted post transfusion. Patient instructed to follow-up with primary care provider upon discharge. Patient to continue with vitamin and zinc supplements and encourage fluids and rest along with monitoring for fever and any signs of worsening shortness of breath or other symptoms and instructed to report to the ER. Patient has not been vaccinated for Covid and discussed with her about discussing it in the outpatient setting with her primary care provider. Currently no reports of chest pain, shortness of breath, or palpitations. Patient is afebrile. No reports of nausea or vomiting and patient is tolerating diet. Patient will be discharged home. On exam vital signs are stable. Cardio S1, S2 are muffled. Respiratory system shows diminished breath sounds at the bases with no wheezing or rhonchi noted. Abdomen is soft and nontender. Nervous system shows no focal deficits. Please refer to medication reconciliation sheet for a list of medications. Patient Condition at Discharge: Fair Plan - Discharge Summary New Discharge Prescriptions: New Acetaminophen-Codeine 300-30mg [Tylenol w/codeine #3] 1 each PO Q4HR PRN #12 tab PRN Reason: Moderate Pain Enalapril [Vasotec] 10 mg PO DAILY #30 tablet Continue Ascorbic Acid [Vitamin C] 1,000 mg PO DAILY Cholecalciferol [Vitamin D3 (25 Mcg = 1000 Iu)] 25 mcg PO DAILY Fenofibrate [Lofibra] 160 mg PO DAILY Glucosamine/Chondr Caceres A Sod [Osteo Bi-Flex Caplet] 1 tab PO BID Metoprolol Succinate (ER) [Toprol XL] 50 mg PO DAILY Multivitamins, Thera [Multivitamin (formulary)] 1 tab PO DAILY Anderson-3 Fatty Acids [Anderson-3] 1,000 mg PO DAILY Vit C/E/Zn/Coppr/Lutein/Zeaxan [Preservision Areds 2 Softgel] 1 cap PO BID Discontinued Enalapril/Hydrochlorothiazide [Enalapril/Hydrochlorothiazide 10-25 mg Tablet] 1 tab PO DAILY Discharge Medication List Ascorbic Acid [Vitamin C] 1,000 mg PO DAILY 06/02/21 [History] Cholecalciferol [Vitamin D3 (25 Mcg = 1000 Iu)] 25 mcg PO DAILY 06/02/21 [History] Fenofibrate [Lofibra] 160 mg PO DAILY 06/02/21 [History] Glucosamine/Chondr Caceres A Sod [Osteo Bi-Flex Caplet] 1 tab PO BID 06/02/21 [History] Metoprolol Succinate (ER) [Toprol XL] 50 mg PO DAILY 06/02/21 [History] Multivitamins, Thera [Multivitamin (formulary)] 1 tab PO DAILY 06/02/21 [History] Anderson-3 Fatty Acids [Anderson-3] 1,000 mg PO DAILY 06/02/21 [History] Vit C/E/Zn/Coppr/Lutein/Zeaxan [Preservision Areds 2 Softgel] 1 cap PO BID 06/02/21 [History] Acetaminophen-Codeine 300-30mg [Tylenol w/codeine #3] 1 each PO Q4HR PRN #12 tab 06/03/21 [Rx] Enalapril [Vasotec] 10 mg PO DAILY #30 tablet 06/03/21 [Rx] Follow up Appointment(s)/Referral(s): Madison Sosa MD [STAFF PHYSICIAN] - 1 Week Leland Martinez DO [Primary Care Provider] - 1-2 days Patient Instructions/Handouts: Coronavirus Disease 2019 (COVID-19) Activity/Diet/Wound Care/Special Instructions: Activity Limited until follow-up Follow-up with primary care provider upon discharge Follow-up cardiology outpatient in 1-2 weeks Continue with medications as prescribed continue current diet Encourage fluids and rest and in continue to monitor for temp and treat with Tylenol continue to quarantine 14 days from date of onset (05/30/2021) Monitor blood pressure and keep a diary for primary care follow-up as medication has been adjusted Continue to monitor pulse ox twice daily to ensure oxygen saturation is above 90% Discharge Disposition: HOME SELF-CARE
== END 2021-06-03 16:43 | disposition home or self-care (01) ==
LOC: EC 14:20 → 6NMEDSUR 17:24
PROVIDERS: ADMIT Internal Medicine; ATTEND Internal Medicine
DX: U07.1 COVID-19 (principal); R55 Syncope and collapse; R11.10 Vomiting, unspecified; R05 Cough; E78.5 Hyperlipidemia, unspecified; I10 Essential (primary) hypertension; Z79.899 Other long term (current) drug therapy; Z85.3 Personal history of malignant neoplasm of breast; R74.01 Elevation of levels of liver transaminase levels
CPT/HCPCS: 96360; 99285; 36415; 93005; 93306; 85379; 80053; 83735; 84484; 85025; 85610; 85730; 81001; 87635; 71046; 70450; G0378 ×2; Q0243

== ENCOUNTER → 2021-11-11 | Outpatient (CLI) | payer MEDICARE ==
--- NOTE | 2021-11-11 15:19 | US ---
EXAMINATION TYPE: US transvaginal DATE OF EXAM: 11/11/2021 COMPARISON: NONE CLINICAL HISTORY: 71-year-old female N83.0 left ovary cyst. Cyst seen on MRI at outside facility, no symptoms TECHNIQUE: TV. Transvaginal sonographic images Date of LMP: 30yrs FINDINGS: EXAM MEASUREMENTS: Uterus: 6.1 x 4.2 x 2.4 cm Endometrial Stripe: 0.2 cm Right Ovary: Unable to visualize Left Ovary: 3.3 x 2.4 x 2.4cm 1. Uterus: Anteverted and otherwise wnl 2. Endometrium: wnl 3. Right Ovary: not seen due to bowel gas and or atrophy 4. Left Ovary: 3.0cm simple appearing cyst 5. Bilateral Adnexa: wnl 6. Posterior cul-de-sac: wnl IMPRESSION: 1. A 3 cm simple appearing cyst of the left ovary. Correlate with size of this cyst on patient's outs palmer MRI. Consider initial six-month follow-up to ensure stability. If stable at that time, annual diane veillance ultrasound can be performed in this postmenopausal female. 2. Thin endometrial stripe at 2 mm. 3. Unable to visualize the right ovary.
== END | disposition home or self-care (01) ==
LOC: RADUSWWP 13:19
PROVIDERS: ATTEND Obstetrics & Gynecology
DX: N83.202 Unspecified ovarian cyst, left side (principal); Z78.0 Asymptomatic menopausal state
CPT/HCPCS: 76830

== ENCOUNTER → 2021-12-02 | Outpatient (CLI) | payer MEDICARE ==
--- NOTE | 2021-12-03 10:12 | MM ---
Reason for exam: screening (asymptomatic). Last mammogram was performed 1 year and 6 months ago. History: Patient is postmenopausal and has history of breast cancer at age 52. Benign cyst aspiration of the left breast, June 02, 2004. Excisional biopsy of the left breast, June 2004. Radiation therapy of the left breast, 2002. Lumpectomy of the left breast, September 01, 2002. Malignant stereotactic core biopsy of the left breast, August 07, 2002. Core biopsy of the left breast. Taking antineoplastic for 5 years. Physical Findings: A clinical breast exam by your physician is recommended on an annual basis and results should be correlated with mammographic findings. MG 3D Screening Mammo W/Cad Bilateral CC and MLO view(s) were taken. Prior study comparison: June 11, 2020, bilateral MG 3d screening mammo w/cad. February 23, 2019, bilateral MG 3d screening mammo w/cad. There are scattered fibroglandular densities. Stable benign calcifications. There is no discrete abnormality. Stable post operative changes left breast. No significant changes when compared with prior studies. ASSESSMENT: Benign, BI-RAD 2 RECOMMENDATION: Routine screening mammogram of both breasts in 1 year.
== END | disposition home or self-care (01) ==
LOC: RADMAMWWP 11:28
PROVIDERS: ATTEND Family Medicine
DX: Z12.31 Encounter for screening mammogram for malignant neoplasm of breast (principal); Z78.0 Asymptomatic menopausal state; Z85.3 Personal history of malignant neoplasm of breast
CPT/HCPCS: 77063; 77067

== ENCOUNTER → 2022-04-06 | Outpatient (CLI) | payer MEDICARE ==
--- NOTE | 2022-04-06 15:46 | US ---
EXAMINATION TYPE: US transvaginal DATE OF EXAM: 04/06/2022 COMPARISON: 11/11/2021 CLINICAL HISTORY: 72-year-old female N83.202 Ovarian cyst. Follow-up left ovarian cyst TECHNIQUE: Transvaginal sonographic images of the pelvis were acquired. Date of LMP: Pt states age 46 FINDINGS: EXAM MEASUREMENTS: Uterus: 7.3 x 2.8 x 4.4 cm Endometrial Stripe: 0.2 cm Right Ovary: 1.5 x 1.1 x 1.6 cm Left Ovary: 3.0 x 2.3 x 2.3 cm 1. Uterus: Anteverted. Otherwise, normal appearing post menopausal uterus 2. Endometrium: wnl 3. Right Ovary: wnl 4. Left Ovary: Cyst= 2.3 x 1.6 x 1.6 cm, appears slightly smaller in size when compared to prior (3. 0 x 2.0 x 1.9 mm, previously). 6. Posterior cul-de-sac: wnl IMPRESSION: 1. Abnormal, though most likely benign, left ovarian cyst in a postmenopausal female. However, we not e that this lesion shows slight interval decrease in size currently 2.3 cm versus 3.0 cm, previously. Recommend continued annual ultrasound surveillance.
== END | disposition home or self-care (01) ==
LOC: RADUSWWP 09:44
PROVIDERS: ATTEND Obstetrics & Gynecology
DX: N83.202 Unspecified ovarian cyst, left side (principal)
CPT/HCPCS: 76830

== ENCOUNTER → 2022-04-06 | Outpatient (CLI) | payer MEDICARE ==
--- NOTE | 2022-04-06 15:50 | US ---
EXAMINATION TYPE: US kidneys/renal and bladder DATE OF EXAM: 04/06/2022 COMPARISON: None CLINICAL HISTORY: 72-year-old female N28.1 CYST OF KIDNEY. Pt states cyst visualized on kidney on out side MRI Technique: Multiple sonographic images of the kidneys and bladder are obtained. FINDINGS: EXAM MEASUREMENTS: Right Kidney: 10.8 x 5.5 x 5.0 cm Left Kidney: 10.3 x 5.6 x 5.8 cm Transition Advisor notes:Pt morbidly obese, very difficult to visualize kidneys Right Kidney: Cyst upper pole= 1.9 x 1.7 x 2.0 cm . At the mid to lower pole, either artifact from co mbination of rib shadowing and superimposed bowel giving the appearance of a 3.1 cm rounded contour a bnormality. Left Kidney: No abnormality visualized . No hydronephrosis on either side. Bladder: Pt stated not given prep to drink water to fill bladder, so bladder was not visualized Incidental shadowing gallstones measuring up to 1.3 cm. IMPRESSION: 1. No hydronephrosis. 2. Benign 2.0 cm cortical cyst upper pole right kidney. 3. Either artifact from a combination of rib shadowing and superimposed bowel giving the appearance o f a 3.1 cm rounded contour abnormality at the mid to lower pole of the left kidney. Unable to clearly exclude a cortical mass at this time. As an initial step, three-month follow-up ultrasound is recomm ended to reassess this area. If there is a persisting abnormality, further CT or MRI evaluation may b e indicated. 4. Suboptimal assessment of the bladder. 5. Incidental cholelithiasis.
== END | disposition home or self-care (01) ==
LOC: RADUSWWP 09:46
PROVIDERS: ATTEND Family Medicine
DX: N28.1 Cyst of kidney, acquired (principal); K80.20 Calculus of gallbladder without cholecystitis without obstruction
CPT/HCPCS: 76770

== ENCOUNTER → 2022-04-22 | Outpatient (CLI) | payer MEDICARE ==
[2022-04-22 16:59] LABS: African American GFR (CKD) >90 (>60 ml/min/1.73 sqM); Blood Urea Nitrogen 26 mg/dL (7-17); Non-African American GFR(CKD) 79 (>60 ml/min/1.73 sqM)
--- NOTE | 2022-04-22 19:44 | CT ---
EXAMINATION TYPE: CT abdomen pelvis w con DATE OF EXAM: 04/22/2022 COMPARISON: Ultrasound dated 04/06/2022 HISTORY: abnormal finding on US of ovary and kidneys. CT DLP: 2220.10 mGycm Automated exposure control for dose reduction was used. TECHNIQUE: Helical acquisition of images was performed from the lung bases through the pelvis. CONTRAST: Performed with Oral Contrast and with IV Contrast, patient injected with 100 mL of Isovue 300. FINDINGS: LUNG BASES: No significant abnormality is appreciated. LIVER/GB: Cholelithiasis without evidence of acute cholecystitis. Unremarkable liver. PANCREAS: No significant abnormality is seen. SPLEEN: Tiny splenic calcifications. ADRENALS: No significant abnormality is seen. KIDNEYS: Scattered right renal cysts without suspicious feature. Unremarkable kidneys otherwise. No l eft renal abnormality corresponding to the ultrasound described finding. FREE AIR: No free air is visualized. RETROPERITONEAL ADENOPATHY: None visualized REPRODUCTIVE ORGANS: 2.1 cm left ovarian/adnexal cyst, suboptimally assessed by this CT scan. Previou s ultrasound recommended follow-up ultrasound, kindly refer to its detailed report. No gross uterine or right adnexal mass. URINARY BLADDER: Obscured by artifacts. PELVIC ADENOPATHY: No pathologically enlarged pelvic lymph nodes. OSSEOUS STRUCTURES: Bilateral hip arthroplasty. Degenerative changes of the lower thoracic and lumba r spine. BOWEL: Colonic diverticulosis. OTHER: Scattered arterial atherosclerotic calcifications. Fat-containing umbilical hernia. IMPRESSION: Right simple renal cysts without suspicious feature. Unremarkable left kidney. Other incidental findi ngs as described above.
== END | disposition home or self-care (01) ==
LOC: RADCTMAIN 16:21
PROVIDERS: ATTEND Family Medicine
DX: N28.1 Cyst of kidney, acquired (principal); K42.9 Umbilical hernia without obstruction or gangrene; K57.30 Diverticulosis of large intestine without perforation or abscess without bleeding
CPT/HCPCS: 82565; 84520; 74177; 36415; Q9967

== ENCOUNTER → 2022-08-10 | Outpatient (CLI) | payer MEDICARE ==
--- NOTE | 2022-08-10 16:08 | US ---
EXAMINATION TYPE: US kidneys/renal and bladder DATE OF EXAM: 08/10/2022 COMPARISON: CT abdomen pelvis 04/20/2022, renal ultrasound 04/06/2022. CLINICAL HISTORY: N83.02 OVARIAN CYST, LEFT. N28.1 KIDNEY CYST. F/U renal cyst EXAM MEASUREMENTS: Right Kidney: 10.7 x 4.7 x 4.7 cm Left Kidney: 10.1 x 5.6 x 4.7 cm Large pt body habitus Right Kidney: No evidence of hydro, cyst upper pole= 2.2 x 1.7 x 1.6 cm/ cyst mid= 1.9 x 1.6 x 2.2 cm . No solid contour deforming mass. No shadowing calculi. Left Kidney: No evidence of hydro . No contour deforming solid mass. No shadowing calculi. Bladder: wnl Bilateral Jets seen: No IMPRESSION: 1. No hydronephrosis or shadowing calculi bilaterally. 2. Stable right renal cysts.
--- NOTE | 2022-08-10 16:11 | US ---
EXAMINATION TYPE: US pelvis complete transvag DATE OF EXAM: 08/10/2022 COMPARISON: Pelvic ultrasound 04/06/2022, CT abdomen pelvis 04/20/2022. CLINICAL HISTORY: N83.02 OVARIAN CYST, LEFT. N28.1 KIDNEY CYST. F/U left ovarian cyst TECHNIQUE: Transvaginal (TV) and Transabdominal (TA) . Transabdominal sonographic images of the pel vis were acquired. Transvaginal sonographic images were medically necessary to better assess the fol lowing anatomy: Ovaries Date of LMP: Age 46 EXAM MEASUREMENTS: Uterus: 6.9 x 2.7 x 3.8 cm cm Endometrial Stripe: 0.2 cm Right Ovary: 2.1 x 1.1 x 1.7 cm Left Ovary: 2.9 x 2.5 x 2.3 cm 1. Uterus: Anteverted wnl 2. Endometrium: wnl 3. Right Ovary: wnl 4. Left Ovary: Cyst= 1.8 x 1.6 x 1.6 cm, slightly smaller in size when compared to prior 5. Bilateral Adnexa: wnl 6. Posterior cul-de-sac: wnl IMPRESSION: Redemonstration of left ovarian cyst which is abnormal in a postmenopausal female but mos t likely benign. This has slightly decreased in size from prior examination. Recommend continued prateek al ultrasound surveillance.
== END | disposition home or self-care (01) ==
LOC: RADUSWWP 15:12
PROVIDERS: ATTEND Family Medicine
DX: N28.1 Cyst of kidney, acquired (principal); N83.202 Unspecified ovarian cyst, left side
CPT/HCPCS: 76770; 76830; 76856

== ENCOUNTER → 2023-04-07 | Outpatient (CLI) | payer MEDICARE ==
--- NOTE | 2023-04-07 20:58 | BD ---
EXAMINATION TYPE: Axial Bone Density DATE OF EXAM: 04/07/2023 CLINICAL HISTORY: 73 years old Female. ICD-10 CODE: M85.9 Height: 62 in Weight: 237 lbs FRAX RISK QUESTIONS: Family History (Parent hip fracture): yes mother Secondary Osteoporosis: 3. Menopause before 45: age 48 RISK FACTORS HISTORY OF: Surgery to Hip(right/left): yes When: 2013 and 2015 Active: yes Diet low in dairy products/other sources of calcium: yes Postmenopausal woman: age 48 Lost more than 2 inches in height since high school:yes MEDICATIONS: Additional Medications: vit d, blood pressure meds, cholesterol meds, Additional History: breast cancer with radiation EXAM MEASUREMENTS: Bone mineral densitometry was performed using the [employer] System. Bone mineral density as measured about the Lumbar spine is: ----- L1-L4(G/cm2): 1.271 T Score Values are as follows: ----- L1: 0.1 ----- L2: 0.0 ----- L3: 1.7 ----- L4: 0.9 ----- L1-L4: 0.8 Z Score Values are as follows: ----- L1: 0.7 ----- L2: 0.6 ----- L3: 2.3 ----- L4: 1.5 ----- L1-L4: 1.3 Bone mineral density has: Increased 3.4% since study of: 02/03/2018 bilateral hip replacements 2013 and 2015 Bone mineral density about the L Wrist (g/cm2): 0.713 T Score values are as follows: -----Dist. R+U: 2.7 -----Prox. R+U: -1.0 -----Radius total: 0.6 Z Score values are as follows: -----Dist. R+U: 5.0 -----Prox. R+U: 1.3 -----Radius total: 2.9 Bone mineral density baseline IMPRESSION: Normal (Values between +1 and -1 indicate normal bone mass). Note that measurements are bordering on osteopenia at the forearm. Consider repeating this study in 5 years or sooner if there is some new c linical indication. NOTE: T-SCORE=SD OF THE YOUNG ADULT MEAN.
--- NOTE | 2023-04-08 20:14 | MM ---
Reason for Exam: Screening (asymptomatic). Last mammogram was performed 1 year(s) and 4 month(s) ago. Patient History: Menarche at age 11. First Full-Term at age 25. Postmenopausal. Breast cancer, left, age 52. 06/2004, Excisional Biopsy on the Left side. Core Biopsy on the Left side. 09/01/2002, Lumpectomy on the Left side. 06/02/2004, Benign Cyst Aspiration on the left side. 08/07/2002, Malignant Stereotactic Core Biopsy on the left side. 2002, Radiation Therapy on the left side. Prior Study Comparison: 02/23/2019 Bilateral Screening Mammogram, [facility]. 06/11/2020 Bilateral Screening Mammogram, [facility]. 12/02/2021 Bilateral Screening Mammogram, [facility]. Tissue Density: There are scattered fibroglandular densities. Findings: Analyzed By CAD. Postsurgical and posttreatment changes left breast with unchanged fat necrosis calcifications at the lumpectomy site. There is no suspicious group of microcalcifications or new suspicious mass in either breast. Overall Assessment: Benign, BI-RAD 2 Management: Screening Mammogram of both breasts in 1 year. . Patient should continue monthly self-breast exams. A clinical breast exam by your physician is recommended on an annual basis. This exam should not preclude additional follow-up of suspicious palpable abnormalities. Note on Cherry scores and lifetime risk: 1. A Cherry score greater than 3% is considered moderate risk. If this is the case, consider specialist referral to assess eligibility for a risk reducing agent. 2. If overall lifetime risk for the development of breast cancer is 20% or higher, the patient may qualify for future screening with alternating mammogram and breast MRI. Electronically signed and approved by: Alena Marcos M.D. Radiologist
== END | disposition home or self-care (01) ==
LOC: RADMAMWWP 15:15
PROVIDERS: ATTEND Family Medicine
DX: Z12.31 Encounter for screening mammogram for malignant neoplasm of breast (principal); M85.9 Disorder of bone density and structure, unspecified; Z78.0 Asymptomatic menopausal state; Z85.3 Personal history of malignant neoplasm of breast
CPT/HCPCS: 77063; 77067; 77080

== ENCOUNTER → 2023-10-11 | Outpatient (CLI) | payer MEDICARE ==
--- NOTE | 2023-10-12 13:07 | US ---
EXAMINATION TYPE: US pelvis complete transvag DATE OF EXAM: 10/11/2023 COMPARISON: Us 08/10/2022 CLINICAL INDICATION: Female, 73 years old with history of N83.202 UNSPECIFIED OVARIAN CYST; Ovarian c yst. No pain or bleeding. Hx tubal ligation. . TECHNIQUE: Transvaginal (TV) and Transabdominal (TA) . Transabdominal sonographic images of the pel vis were acquired. Transvaginal sonographic images were medically necessary to better assess the fol lowing anatomy: uterus and right ovary Date of LMP: Patient believes LMP was at age 46. EXAM MEASUREMENTS: Uterus: 6.5 x 4.4 x 2.2 cm Endometrial Stripe: 0.16 cm Right Ovary: Not seen Left Ovary: 3.4 x 2.3 x 2.4 cm 1. Uterus: Anteverted Hyperechoic foci seen throughout the uterus. Largest measures 0.2 x 0.4 x 0.2 cm in greatest dimension. 2. Endometrium: 0.16 cm 3. Right Ovary: Not seen. 4. Left Ovary: Seen only transabdominally. 5. Bilateral Adnexa: Appear wnl 6. Posterior cul-de-sac: Appears wnl IMPRESSION: 1. Echogenic foci within the uterus are nonspecific but could be related to fibroid calcifications.
== END | disposition home or self-care (01) ==
LOC: RADUSWWP 15:38
PROVIDERS: ATTEND Family Medicine
DX: N83.202 Unspecified ovarian cyst, left side (principal)
CPT/HCPCS: 76830; 76856

== ENCOUNTER → 2024-04-24 | Outpatient (CLI) | payer MEDICARE ==
--- NOTE | 2024-04-25 18:19 | MM ---
Reason for Exam: Screening (asymptomatic). Last screening mammogram was performed 12 month(s) ago. Patient History: Menarche at age 11. First Full-Term at age 25. Postmenopausal. Breast cancer, left, age 52. 06/2004, Excisional Biopsy on the Left side. Core Biopsy on the Left side. 09/01/2002, Lumpectomy on the Left side. 06/02/2004, Benign Cyst Aspiration on the left side. 08/07/2002, Malignant Stereotactic Core Biopsy on the left side. 2002, Radiation Therapy on the left side. Prior Study Comparison: 06/11/2020 Bilateral Screening Mammogram, [facility]. 12/02/2021 Bilateral Screening Mammogram, [facility]. 04/07/2023 Bilateral MG 3D screening mammo w/cad, [facility]. Tissue Density: There are scattered areas of fibroglandular density. Findings: Analyzed By CAD. Postsurgical and posttraumatic changes left breast with extensive fat necrosis calcifications at the posterior lateral lumpectomy site. There is no suspicious group of microcalcifications or new suspicious mass in either breast. Overall Assessment: Benign, BI-RAD 2 Management: Screening Mammogram of both breasts in 1 year. . Patient should continue monthly self-breast exams. A clinical breast exam by your physician is recommended on an annual basis. This exam should not preclude additional follow-up of suspicious palpable abnormalities. Electronically signed and approved by: Alena Marcos M.D. Radiologist
== END | disposition home or self-care (01) ==
LOC: RADMAMWWP 13:00
PROVIDERS: ATTEND Family Medicine
DX: Z12.31 Encounter for screening mammogram for malignant neoplasm of breast (principal); Z78.0 Asymptomatic menopausal state
CPT/HCPCS: 77063; 77067

== ENCOUNTER 2024-11-23 07:43 | Day surgery (SDC) | payer MEDICARE ==
[~2024-11-23 07:43] MED LIST: LIDOCAINE 1% (10MG/ML) FOR IV START INTRADERMA PRN
[2024-11-23] MEDS: IV FLUID CONTINUATION 1,000 ML IV ONE (08:10)
[2024-11-23 08:22] VITALS: TEMP 97.8
[2024-11-23] MEDS: LACTATED RINGERS 1,000 ML IV SCH (08:38)
[2024-11-23] MEDS ORDERED: PROPOFOL 10 MG/ML 20 ML VIAL IV ONE (08:47)
--- NOTE | 2024-11-23 09:03 | P.PCN ---
Date of Procedure: 11/23/24 Procedure(s) Performed: BRIEF HISTORY: Patient is a 74-year-old pleasant white female scheduled for an elective colonoscopy as a part of screening for colon cancer/positive Cologuard. Her last colonoscopy was more than 10 years ago. PROCEDURE PERFORMED: Colonoscopy. PREOPERATIVE DIAGNOSIS: Screening for colon cancer/positive Cologuard. IV sedation per Anesthesia. PROCEDURE: After informed consent was obtained, the patient, was brought into the endoscopy unit. IV sedation was administered by Anesthesia under continuous monitoring. Digital rectal examination was normal. Initially the Olympus CF-160 flexible video colonoscope was then inserted in the rectum, gradually advanced into the cecum without any difficulty. Careful examination was performed as the scope was gradually being withdrawn. Ileocecal valve and the appendiceal orifice were visualized and appeared normal. Prep was excellent. Mucosa of the cecum, ascending colon, transverse colon, descending colon, sigmoid colon, and rectum appeared normal. Scattered sigmoid diverticulosis. Retroflexion was performed in the rectum and small internal hemorrhoids. Were seen. The patient tolerated the procedure well. IMPRESSION: Normal-appearing colon from rectum to cecum with no evidence of colorectal neoplasia. Scattered sigmoid diverticulosis. Small internal hemorrhoids. RECOMMENDATIONS: Findings of this examination were discussed with the patient as well as the family. She was advised to be on a high-fiber diet and take fiber supplements on a regular basis..
[2024-11-23 09:30] VITALS: BP 122/76; PULSE 82; RESP 17
== END 2024-11-23 10:24 | disposition home or self-care (01) ==
LOC: ORWHC2ENDO 07:43
PROVIDERS: ATTEND Internal Medicine Gastroenterology
DX: Z12.11 Encounter for screening for malignant neoplasm of colon (principal); K57.30 Diverticulosis of large intestine without perforation or abscess without bleeding; K64.8 Other hemorrhoids; I10 Essential (primary) hypertension; E78.5 Hyperlipidemia, unspecified; Z79.899 Other long term (current) drug therapy; Z85.3 Personal history of malignant neoplasm of breast; Z88.1 Allergy status to other antibiotic agents; Z88.2 Allergy status to sulfonamides; Z88.8 Allergy status to other drugs, medicaments and biological substances
CPT/HCPCS: J2704; G0121

== ENCOUNTER → 2025-03-20 | Outpatient (CLI) | payer MEDICARE ==
--- NOTE | 2025-03-20 11:40 | XR ---
EXAMINATION TYPE: XR thoracic spine 3 views complete DATE OF EXAM: 03/20/2025 11:25 AM COMPARISON: None CLINICAL INDICATION: Female, 75 years old with history of M546 THOR PAIN; YCH, pain FINDINGS: Calcified subcarinal and AP window lymph nodes compatible prior granulomatous disease. There is osteo penia. 12 rib-bearing thoracic vertebral bodies. All pedicles are visualized. There is moderate degen erative disc disease and anterior endplate spondylosis throughout the thoracic spine. Vertebral body heights are preserved and alignment is maintained. Some levels of anterior bridging endplate spondylo sis lower thoracic spine suggesting DISH. IMPRESSION: 1. 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 2. No vertebral compression collapse or malalignment. [facility], , 03/20/2025 11:38 AM
== END | disposition home or self-care (01) ==
LOC: RADXRYALE 11:09
PROVIDERS: ATTEND Physician Assistant Medical
DX: M51.34 Other intervertebral disc degeneration, thoracic region (principal); M48.14 Ankylosing hyperostosis [Forestier], thoracic region
CPT/HCPCS: 72072

== ENCOUNTER → 2025-04-27 | Outpatient (CLI) | payer MEDICARE ==
--- NOTE | 2025-04-27 11:34 | MM ---
Reason for Exam: Screening (asymptomatic). Last screening mammogram was performed 12 month(s) ago. Patient History: Menarche at age 11. First Full-Term at age 25. Postmenopausal. Breast cancer, left, age 52. 06/2004, Excisional Biopsy on the Left side. Core Biopsy on the Left side. 09/01/2002, Lumpectomy on the Left side. 06/02/2004, Benign Cyst Aspiration on the left side. 08/07/2002, Malignant Stereotactic Core Biopsy on the left side. 2002, Radiation Therapy on the left side. Prior Study Comparison: 12/02/2021 Bilateral Screening Mammogram, [facility]. 04/07/2023 Bilateral MG 3D screening mammo w/cad, [facility]. 04/24/2024 Bilateral MG 3D screening mammo w/cad, [facility]. Tissue Density: The breasts are almost entirely fatty. Findings: Analyzed By CAD. Left breast surgical clips. Right breast: There is no suspicious group of microcalcifications or new suspicious mass. Left breast: There is no suspicious group of microcalcifications or new suspicious mass. Benign-appearing calcifications left breast. Overall Assessment: Benign, BI-RAD 2 Management: Screening Mammogram of both breasts in [address] [facility] will attempt to contact patient to return for supplemental views and ultrasound if indicated. Patient should continue monthly self-breast exams. A clinical breast exam by your physician is recommended on an annual basis. This exam should not preclude additional follow-up of suspicious palpable abnormalities. Note on Cherry scores and lifetime risk: 1. A Cherry score greater than 3% is considered moderate risk. If this is the case, consider specialist referral to assess eligibility for a risk reducing agent. 2. If overall lifetime risk for the development of breast cancer is 20% or higher, the patient may qualify for future screening with alternating mammogram and breast MRI. [facility], , 04/27/2025 11:20 AM. Electronically signed and approved by: Gautam Gates DO
== END | disposition home or self-care (01) ==
LOC: RADMAMWWP 10:47
PROVIDERS: ATTEND Family Medicine
DX: Z12.31 Encounter for screening mammogram for malignant neoplasm of breast (principal); R92.313 Mammographic fatty tissue density, bilateral breasts; R92.1 Mammographic calcification found on diagnostic imaging of breast; Z85.3 Personal history of malignant neoplasm of breast; Z78.0 Asymptomatic menopausal state
CPT/HCPCS: 77063; 77067